=== PATIENT | male | born 1985 | race Hispanic/Latino ===

== ENCOUNTER 2018-10-27 14:12 | Emergency (ER) | payer SELFPAY ==
[2018-10-27 15:02] LABS: Urine Blood NEGATIVE (NEG); Urine Glucose NEGATIVE (NEG); Urine Protein NEGATIVE (NEG); Urine Specific Gravity 1.025 (1.005-1.030); Urine pH 5.5 (5.0-7.0)
[2018-10-27 15:12] LABS: Urine Bacteria <20 /HPF (NONE SEEN); Urine Culture Reflex Order NOT NEEDED; Urine RBC <5 /HPF (NONE SEEN)
[2018-10-27 15:13] LABS: Urine Mucus 1+ /HPF (NONE SEEN)
--- NOTE | 2018-10-27 15:37 | RAD REPORT ---
EXAM DESCRIPTION: CT - Stone Protocol - 10/27/2018 3:20 pm CLINICAL HISTORY: Abdominal pain. Left abdominal pain COMPARISON: 2014 TECHNIQUE: Computed axial tomography of the abdomen pelvis was obtained without oral or IV contrast. Lack of IV and oral contrast limits evaluation of solid organs, bowel, and vessels. Coronal reformat javi images were obtained and reviewed. All CT scans are performed using dose optimization technique as appropriate and may include automated exposure control or mA/KV adjustment according to patient size. FINDINGS: A renal calculus is not seen. An ureteral calculus is not noted. A bladder calculus is not present. The liver, spleen, pancreas and adrenals appear grossly normal There is no evidence of diverticulitis. The appendix appears normal Spondylolysis L5 IMPRESSION: Negative for a genitourinary calculus
--- NOTE | 2018-10-27 15:42 | EDPHYS ---
Physician Documentation [facility] Name: Matias Hernandez Age: 33 yrs Sex: Male : 1985 Arrival Date: 10/27/2018 Time: 14:14 Bed 17 Private MD: ED Physician Abel Langford HPI: 10/27 15:19 This 33 yrs old Male presents to ER via Ambulatory with complaints of Back kb Pain. 15:19 The patient presents with pain that is acute, with no known mechanism of injury, and kb tenderness. The symptoms are located in the left mid back. Onset: The symptoms/episode began/occurred yesterday. The pain radiates to the left upper quadrant. Associated signs and symptoms: Pertinent positives: abdominal pain, Pertinent negatives: chest pain, constipation, dysuria, fever, headache, hematuria, incontinence, nausea, numbness, tingling, urinary retention, vomiting, weakness. The problem was sustained from unknown cause. Modifying factors: The patient symptoms are alleviated by nothing, the patient symptoms are aggravated by palpation. Severity of symptoms: At their worst the symptoms were mild, moderate, in the emergency department the symptoms are unchanged. The patient has not experienced similar symptoms in the past. The patient has not recently seen a physician. Pt reports left flank/mid back pain that started yesterday. Reports it is now wrapping around to LUQ. Denies fever, n/v/d, urinary symptoms. Historical: - Allergies: 14:18 PENICILLINS; tw2 14:18 "all CILLINS"; tw2 - Home Meds: 14:18 losartan 50 mg oral tab 1 tab once daily [Active]; tw2 - PMHx: 14:18 Obesity; Hypertension; tw2 - PSHx: 14:18 None; tw2 - Immunization history:: Adult Immunizations. - Social history:: Smoking status: . - Ebola Screening: : Patient denies travel to an Ebola-affected area in the 21 days before illness onset. ROS: 15:19 Constitutional: Negative for fever, chills, and weight loss, Cardiovascular: Negative kb for chest pain, palpitations, and edema, Respiratory: Negative for shortness of breath, cough, wheezing, and pleuritic chest pain, Abdomen/GI: Negative for abdominal pain, nausea, vomiting, diarrhea, and constipation, : Negative for injury, bleeding, discharge, and swelling, MS/Extremity: Negative for injury and deformity, Skin: Negative for injury, rash, and discoloration, Neuro: Negative for headache, weakness, numbness, tingling, and seizure. 15:19 Back: Positive for flank pain, on the left, radiated pain. Exam: 15:19 Constitutional: This is a well developed, well nourished patient who is awake, alert, kb and in no acute distress. Head/Face: Normocephalic, atraumatic. Chest/axilla: Normal chest wall appearance and motion. Nontender with no deformity. No lesions are appreciated. Cardiovascular: Regular rate and rhythm with a normal S1 and S2. No gallops, murmurs, or rubs. Normal PMI, no JVD. No pulse deficits. Respiratory: Lungs have equal breath sounds bilaterally, clear to auscultation and percussion. No rales, rhonchi or wheezes noted. No increased work of breathing, no retractions or nasal flaring. Abdomen/GI: Soft, non-tender, with normal bowel sounds. No distension or tympany. No guarding or rebound. No evidence of tenderness throughout. Skin: Warm, dry with normal turgor. Normal color with no rashes, no lesions, and no evidence of cellulitis. MS/ Extremity: Pulses equal, no cyanosis. Neurovascular intact. Full, normal range of motion. Neuro: Awake and alert, GCS 15, oriented to person, place, time, and situation. Cranial nerves II-XII grossly intact. Motor strength 5/5 in all extremities. Sensory grossly intact. Cerebellar exam normal. Normal gait. 15:19 Back: pain, that is moderate, of the left mid back. Vital Signs: 14:16 BP 154 / 71; Pulse 81; Resp 17; Temp 97.7(O); Pulse Ox 97% ; Weight 174.63 kg (R); tw2 Height 6 ft. 1 in. (185.42 cm); Pain 8/10; 14:16 Body Mass Index 50.79 (174.63 kg, 185.42 cm) tw2 MDM: 14:38 Patient medically screened. kb 15:18 Data reviewed: vital signs, nurses notes. Data interpreted: Pulse oximetry: on room air kb is 97 %. Interpretation: normal. 15:38 Counseling: I had a detailed discussion with the patient and/or guardian regarding: the kb historical points, exam findings, and any diagnostic results supporting the discharge/admit diagnosis, lab results, radiology results, the need for outpatient follow up, a family practitioner, to return to the emergency department if symptoms worsen or persist or if there are any questions or concerns that arise at home. 10/27 14:57 Order name: Urine Culture kb 10/27 14:57 Order name: Urine Microscopic Only; Complete Time: 15:14 kb 10/27 14:56 Order name: CT Stone Protocol; Complete Time: 15:38 kb 10/27 14:57 Order name: Urine Dipstick-Ancillary (obtain specimen); Complete Time: 14:57 kb 10/27 14:57 Order name: Urine Dipstick--Ancillary (enter results); Complete Time: 15:07 kb Administered Medications: 15:53 Drug: TORadol 60 mg Route: IM; Site: right gluteus; em Disposition: 10/28 07:02 Co-signature as Attending Physician, Abel Langford MD. rn Disposition: 10/27/18 15:42 Discharged to Home. Impression: Left midback pain. - Condition is Stable. - Discharge Instructions: Musculoskeletal Pain, Back Pain, Adult, Oabk-kg-[id number]. - Prescriptions for Diclofenac Sodium 75 mg Oral Tablet, Delayed Release (E.C.) - take 1 tablet by ORAL route 2 times per day As needed; 30 tablet. - Medication Reconciliation Form, Thank You Letter, Antibiotic Education, Prescription Opioid Use form. - Follow up: Emergency Department; When: As needed; Reason: Worsening of condition. Follow up: Private Physician; When: 2 - 3 days; Reason: Recheck today's complaints, Continuance of care, Re-evaluation by your physician. Signatures: Dispatcher [employer] Olga Guzmán, BETY-C MARKETING PROJECT COORDINATOR-Ckb Rip Gerber, AUTO BODY ESTIMATOR AUTO BODY ESTIMATOR Abel Langford MD MD rn Wise, Tara, RN RN tw2 Corrections: (The following items were deleted from the chart) 10/27 16:04 15:42 10/27/2018 15:42 Discharged to Home. Impression: Left midback pain. Condition is em Stable. Forms are Medication Reconciliation Form, Thank You Letter, Antibiotic Education, Prescription Opioid Use. Follow up: Emergency Department; When: As needed; Reason: Worsening of condition. Follow up: Private Physician; When: 2 - 3 days; Reason: Recheck today's complaints, Continuance of care, Re-evaluation by your physician. kb
--- NOTE | 2018-10-27 15:42 | ER ---
Nurse's Notes [facility] Name: Matias Hernandez Age: 33 yrs Sex: Male : 1985 Arrival Date: 10/27/2018 Time: 14:14 Bed 17 Private MD: Diagnosis: Left midback pain Presentation: 10/27 14:15 Presenting complaint: Patient states: it started hurting on my left kidney area and tw2 down to the middle of my back and on the LEFT of my stomach, started yesterday. Transition of care: patient was not received from another setting of care. Onset of symptoms was October 27, 2018. Risk Assessment: Do you want to hurt yourself or someone else? Patient reports no desire to harm self or others. Initial Sepsis Screen: Does the patient meet any 2 criteria? No. Patient's initial sepsis screen is negative. Does the patient have a suspected source of infection? No. Patient's initial sepsis screen is negative. Care prior to arrival: None. 14:15 Method Of Arrival: Ambulatory tw2 14:15 Acuity: THOMAS 3 tw2 Triage Assessment: 14:18 General: Appears in no apparent distress. obese, Behavior is calm, cooperative, tw2 appropriate for age. Pain: Complains of pain in left low back and left mid back. GI: Reports lower abdominal pain, upper abdominal pain. Musculoskeletal: Range of motion: intact in all extremities. Historical: - Allergies: 14:18 PENICILLINS; tw2 14:18 "all CILLINS"; tw2 - Home Meds: 14:18 losartan 50 mg oral tab 1 tab once daily [Active]; tw2 - PMHx: 14:18 Obesity; Hypertension; tw2 - PSHx: 14:18 None; tw2 - Immunization history:: Adult Immunizations. - Social history:: Smoking status: . - Ebola Screening: : Patient denies travel to an Ebola-affected area in the 21 days before illness onset. Screenin:48 Abuse screen: Denies threats or abuse. Nutritional screening: No deficits noted. tw2 Tuberculosis screening: No symptoms or risk factors identified. Fall Risk None identified. Assessment: 14:44 General: Appears in no apparent distress. comfortable, Behavior is calm, cooperative, em Denies fever. Pain: Complains of pain in left mid back Pain currently is 8 out of 10 on a pain scale. Neuro: Level of Consciousness is awake, alert, obeys commands, Oriented to person, place, time, situation, Denies paresthesias. Cardiovascular: Capillary refill < 3 seconds Patient's skin is warm and dry. Respiratory: Airway is patent Respiratory effort is even, unlabored, Respiratory pattern is regular, symmetrical. GI: Abdomen is round non-distended, Patient currently denies nausea, vomiting. : Denies burning with urination, discharge. Derm: Skin is intact, is healthy with good turgor, Skin is pink, warm \\T\\ dry. Musculoskeletal: Capillary refill < 3 seconds, Range of motion: intact in all extremities. Vital Signs: 14:16 BP 154 / 71; Pulse 81; Resp 17; Temp 97.7(O); Pulse Ox 97% ; Weight 174.63 kg (R); tw2 Height 6 ft. 1 in. (185.42 cm); Pain 8/10; 14:16 Body Mass Index 50.79 (174.63 kg, 185.42 cm) tw2 ED Course: 14:14 Patient arrived in ED. rg4 14:16 Triage completed. tw2 14:18 Arm band placed on. tw2 14:28 Bed in low position. Adult w/ patient. tw2 14:37 Olga Mar FNP-C is [facility]. kb 14:37 Abel Langford MD is Attending Physician. kb 15:08 Rip Gerber LVN is Primary Nurse. em 15:20 CT completed. Patient tolerated procedure well. Patient moved back from CT. mw3 15:22 CT Stone Protocol In Process Unspecified. EDMS 16:04 No provider procedures requiring assistance completed. Patient did not have IV access em during this emergency room visit. Administered Medications: 15:53 Drug: TORadol 60 mg Route: IM; Site: right gluteus; em Outcome: 15:42 Discharge ordered by MD. kb 16:04 Discharged to home ambulatory, with family. em 16:04 Condition: good 16:04 Discharge instructions given to patient, family, Instructed on discharge instructions, follow up and referral plans. medication usage, Demonstrated understanding of instructions, follow-up care, medications, Prescriptions given X 1. 16:04 Patient left the ED. em Signatures: Dispatcher [employer] EDMS Olga Mar FNP-C FNP-Ckb Munoz Rip, SCROLL SHEAR OPERATOR SCROLL SHEAR OPERATOR Aleida Yeung, RN RN tw2 Essie Turpin rg4 Jennifer Cobb mw3
[2018-10-27] MEDS ORDERED: KETOROLAC 30 MG/ML INJ ONE (15:59)
== END 2018-10-27 16:04 | disposition home or self-care (01) ==
LOC: ER 14:12
DX: M54.6 Pain in thoracic spine (principal); Z88.0 Allergy status to penicillin
CPT/HCPCS: 74176; 76377; 81003; 81015; 87086; 87088; 96372; 99284

== ENCOUNTER 2019-03-31 18:14 | Emergency (ER) | payer SELFPAY ==
[2019-03-31] MEDS ORDERED: ALBUTEROL 2.5 MG/3 ML NEB SOL ONE (19:09)
[2019-03-31] MEDS ORDERED: predniSONE 20 MG TAB ONE (19:09)
[2019-03-31] MEDS ORDERED: IPRATROPIUM BROM 0.5MG/2.5ML ONE (19:09)
--- NOTE | 2019-03-31 19:39 | RAD REPORT ---
EXAM DESCRIPTION: Pam Urena (2 Views)03/31/2019 7:22 pm CLINICAL HISTORY: Cough COMPARISON: 2017 FINDINGS: The lungs appear clear of acute infiltrate. The heart is normal size IMPRESSION: No acute abnormalities displayed
--- NOTE | 2019-03-31 21:11 | ER ---
Nurse's Notes [facility] Name: Matias Hernandez Age: 33 yrs Sex: Male : 1985 Arrival Date: 03/31/2019 Time: 18:17 Bed 13 Private MD: Diagnosis: Bronchitis, not specified as acute or chronic Presentation: 03/31 18:28 Presenting complaint: Patient states: SMITH, cough, SOB, since Monday. Transition of care: la1 patient was not received from another setting of care. Onset of symptoms was March 31, 2019. Risk Assessment: Do you want to hurt yourself or someone else? Patient reports no desire to harm self or others. Initial Sepsis Screen: Does the patient meet any 2 criteria? No. Patient's initial sepsis screen is negative. Does the patient have a suspected source of infection? No. Patient's initial sepsis screen is negative. Care prior to arrival: None. 18:28 Method Of Arrival: Ambulatory la1 18:28 Acuity: THOMAS 3 la1 Historical: - Allergies: 18:28 "all CILLINS"; la1 18:28 PENICILLINS; la1 - PMHx: 18:28 Hypertension; Obesity; la1 - Immunization history:: Adult Immunizations up to date. - Social history:: Smoking status: Patient/guardian denies using tobacco. - Ebola Screening: : No symptoms or risks identified at this time. Screenin:38 Abuse screen: Denies threats or abuse. Denies injuries from another. Nutritional ph screening: No deficits noted. Tuberculosis screening: No symptoms or risk factors identified. Fall Risk None identified. Assessment: 18:45 General: Appears in no apparent distress. comfortable, obese, Behavior is calm, ph cooperative, appropriate for age, Denies fever. Pain: Complains of pain in head. Neuro: Level of Consciousness is awake, alert, obeys commands, Oriented to person, place, time, situation. Neuro: Reports headache since Monday. Cardiovascular: Capillary refill < 3 seconds in bilateral fingers Patient's skin is warm and dry. Respiratory: Reports shortness of breath at rest cough that is Airway is patent Respiratory effort is even, unlabored, Respiratory pattern is regular, symmetrical. GI: No signs and/or symptoms were reported involving the gastrointestinal system. Derm: Skin is intact, Skin is pink, warm \\T\\ dry. Musculoskeletal: Circulation, motion, and sensation intact. Range of motion: intact in all extremities. 19:13 Reassessment: Patient appears in no apparent distress at this time. Patient and/or aa1 family updated on plan of care and expected duration. Pain level reassessed. Patient is alert, oriented x 3, equal unlabored respirations, skin warm/dry/pink. Pt taken to x-ray at this time. 21:01 Reassessment: Patient appears in no apparent distress at this time. Patient and/or aa1 family updated on plan of care and expected duration. Pain level reassessed. Patient is alert, oriented x 3, equal unlabored respirations, skin warm/dry/pink. Awaiting x-ray results Patient denies pain at this time. Patient states symptoms have improved. 21:21 Reassessment: Patient appears in no apparent distress at this time. Patient is alert, aa1 oriented x 3, equal unlabored respirations, skin warm/dry/pink. Discussed d/c \\T\\ f/u instructions with pt; denies questions or concerns at this time. Ambulatory to lobby with steady gait Patient states feeling better. Vital Signs: 18:28 BP 144 / 72; Pulse 79; Resp 16; Temp 98.1; Pulse Ox 100% on R/A; Weight 175.99 kg; la1 Height 6 ft. 0 in. (182.88 cm); 19:41 BP 118 / 71; Pulse 81; Resp 18; Pulse Ox 100% ; Pain 0/10; aa1 20:45 BP 122 / 73; Pulse 87; Resp 18; Pulse Ox 97% on R/A; Pain 0/10; aa1 18:28 Body Mass Index 52.62 (175.99 kg, 182.88 cm) la1 ED Course: 18:17 Patient arrived in ED. mr 18:28 Triage completed. la1 18:29 Arm band placed on right wrist. la1 18:34 Valdemar Bower NP is PHCP. pm1 18:34 Kenzie Molina MD is Attending Physician. pm1 18:37 Olga Waters RN is Primary Nurse. ph 19:15 Pulse ox on. NIBP on. aa1 19:22 Chest Pa And Lat (2 Views) XRAY In Process Unspecified. EDMS 21:21 Patient has correct armband on for positive identification. Bed in low position. Call aa1 light in reach. 21:22 No provider procedures requiring assistance completed. Patient did not have IV access aa1 during this emergency room visit. Administered Medications: 19:12 Drug: predniSONE 60 mg Route: PO; aa1 21:18 Follow up: Response: No adverse reaction; Marked relief of symptoms aa1 19:25 Drug: Albuterol - atroVENT (3:1) (2.5 mg - 0.5 mg) 3 ml Route: Nebulizer; aa1 21:18 Follow up: Response: No adverse reaction; Marked relief of symptoms aa1 Outcome: 21:10 Discharge ordered by MD. pm1 21:22 Discharged to home ambulatory. aa1 21:22 Condition: good 21:22 Discharge instructions given to patient, Instructed on discharge instructions, follow up and referral plans. medication usage, Demonstrated understanding of instructions, follow-up care, medications, Prescriptions given X 3. 21:23 Patient left the ED. aa1 Signatures: Dispatcher [employer] EDMS Corin Murray RN RN aa1 Shagufta Varghese Lee RN MAGUI la1 Olga Waters RN RN ph Marinas, Patrick, VAULT MECHANIC VAULT MECHANIC pm1 Corrections: (The following items were deleted from the chart) :23 21:22 Discharge instructions given to patient, Instructed on discharge instructions, aa1 follow up and referral plans. medication usage, Demonstrated understanding of instructions, follow-up care, medications, Prescriptions given X 1, aa1
--- NOTE | 2019-03-31 21:11 | EDPHYS ---
Physician Documentation [facility] Name: Matias Hernandez Age: 33 yrs Sex: Male : 1985 Arrival Date: 03/31/2019 Time: 18:17 Bed 13 Private MD: ED Physician Kenzie Molina HPI: 03/31 19:01 This 33 yrs old Male presents to ER via Ambulatory with complaints of pm1 Headache, Shortness Of Breath, Cough. 19:01 The patient or guardian reports cough, with productive sputum. Onset: The pm1 symptoms/episode began/occurred 2 day(s) ago. Severity of symptoms: in the emergency department the symptoms are actually worse. Modifying factors: The symptoms are alleviated by nothing, the symptoms are aggravated by nothing. Associated signs and symptoms: Pertinent positives: sore throat, post nasal drainage, headache, Pertinent negatives: ear ache, fever. The patient has not recently seen a physician. Historical: - Allergies: 18:28 "all CILLINS"; la1 18:28 PENICILLINS; la1 - PMHx: 18:28 Hypertension; Obesity; la1 - Immunization history:: Adult Immunizations up to date. - Social history:: Smoking status: Patient/guardian denies using tobacco. - Ebola Screening: : No symptoms or risks identified at this time. ROS: 19:01 Constitutional: Negative for fever, chills, and weight loss, Eyes: Negative for injury, pm1 pain, redness, and discharge. 19:01 Neck: Negative for injury, pain, and swelling, Cardiovascular: Negative for chest pain, palpitations, and edema. 19:01 Abdomen/GI: Negative for abdominal pain, nausea, vomiting, diarrhea, and constipation, Back: Negative for injury and pain, MS/Extremity: Negative for injury and deformity, Skin: Negative for injury, rash, and discoloration, Neuro: Negative for headache, weakness, numbness, tingling, and seizure. 19:01 ENT: Positive for sore throat, Negative for drainage from ear(s), ear pain. 19:01 Respiratory: Positive for cough, shortness of breath, Negative for wheezing. Exam: 19:01 Constitutional: This is a well developed, well nourished patient who is awake, alert, pm1 and in no acute distress. Head/Face: Normocephalic, atraumatic. Eyes: Pupils equal round and reactive to light, extra-ocular motions intact. Lids and lashes normal. Conjunctiva and sclera are non-icteric and not injected. Cornea within normal limits. Periorbital areas with no swelling, redness, or edema. ENT: Nares patent. No nasal discharge, no septal abnormalities noted. Tympanic membranes are normal and external auditory canals are clear. Oropharynx with no redness, swelling, or masses, exudates, or evidence of obstruction, uvula midline. Mucous membranes moist. Neck: Trachea midline, no thyromegaly or masses palpated, and no cervical lymphadenopathy. Supple, full range of motion without nuchal rigidity, or vertebral point tenderness. No Meningismus. Chest/axilla: Normal chest wall appearance and motion. Nontender with no deformity. No lesions are appreciated. Cardiovascular: Regular rate and rhythm with a normal S1 and S2. No gallops, murmurs, or rubs. Normal PMI, no JVD. No pulse deficits. Respiratory: Lungs have equal breath sounds bilaterally, clear to auscultation and percussion. No rales, rhonchi or wheezes noted. No increased work of breathing, no retractions or nasal flaring. Abdomen/GI: Soft, non-tender, with normal bowel sounds. No distension or tympany. No guarding or rebound. No evidence of tenderness throughout. Back: No spinal tenderness. No costovertebral tenderness. Full range of motion. Skin: Warm, dry with normal turgor. Normal color with no rashes, no lesions, and no evidence of cellulitis. MS/ Extremity: Pulses equal, no cyanosis. Neurovascular intact. Full, normal range of motion. 19:01 Neuro: Orientation: is normal, Motor: is normal, moves all fours. Vital Signs: 18:28 BP 144 / 72; Pulse 79; Resp 16; Temp 98.1; Pulse Ox 100% on R/A; Weight 175.99 kg; la1 Height 6 ft. 0 in. (182.88 cm); 19:41 BP 118 / 71; Pulse 81; Resp 18; Pulse Ox 100% ; Pain 0/10; aa1 20:45 BP 122 / 73; Pulse 87; Resp 18; Pulse Ox 97% on R/A; Pain 0/10; aa1 18:28 Body Mass Index 52.62 (175.99 kg, 182.88 cm) la1 MDM: 18:35 Patient medically screened. pm1 21:09 Data reviewed: vital signs. Data interpreted: Pulse oximetry: on room air is 97 %. pm1 Interpretation: normal. Counseling: I had a detailed discussion with the patient and/or guardian regarding: the historical points, exam findings, and any diagnostic results supporting the discharge/admit diagnosis, lab results, radiology results, the need for outpatient follow up, a family practitioner, to return to the emergency department if symptoms worsen or persist or if there are any questions or concerns that arise at home. 03/31 19:01 Order name: Flu; Complete Time: 19:31 pm1 03/31 19:01 Order name: Strep; Complete Time: 19:31 pm1 03/31 19: Order name: Chest Pa And Lat (2 Views) XRAY pm1 03/31 19:33 Order name: Throat Culture EDMS Administered Medications: 19:12 Drug: predniSONE 60 mg Route: PO; aa1 21:18 Follow up: Response: No adverse reaction; Marked relief of symptoms aa1 19:25 Drug: Albuterol - atroVENT (3:1) (2.5 mg - 0.5 mg) 3 ml Route: Nebulizer; aa1 21:18 Follow up: Response: No adverse reaction; Marked relief of symptoms aa1 Disposition: 04/01 16:48 Co-signature as Attending Physician, Kenzie Molina MD. ma2 Disposition: 03/31/19 21:10 Discharged to Home. Impression: Bronchitis, not specified as acute or chronic. - Condition is Stable. - Discharge Instructions: Acute Bronchitis, Adult, How to Use an Inhaler, Cough, Adult. - Prescriptions for Medrol (Kaiden) 4 mg Oral Tablets, Dose Pack - take 1 tablet by ORAL route as directed - follow package instructions; 1 packet. Albuterol Sulfate 90 mcg/actuation - inhale 1-2 puff by INHALATION route every 4-6 hours; 1 Inhaler. Guaifenesin AC 10- 100 mg/5 mL Oral Liquid - take 10 milliliter by ORAL route every 4 hours As needed; 240 milliliter. - Medication Reconciliation Form, Thank You Letter, Antibiotic Education, Prescription Opioid Use form. - Follow up: Emergency Department; When: As needed; Reason: Worsening of condition. Follow up: Private Physician; When: 2 - 3 days; Reason: Recheck today's complaints, Continuance of care, Re-evaluation by your physician. - Problem is new. - Symptoms have improved. Signatures: Dispatcher [employer] EDCorin Sommers RN RN aa1 Jose R Urias RN RN la1 Valdemar Bower, SLASHER TENDER SLASHER TENDER pm1 Kenzie Molina MD MD ma2 Corrections: (The following items were deleted from the chart) 03/31 21:23 21:10 03/31/2019 21:10 Discharged to Home. Impression: Bronchitis, not specified as aa1 acute or chronic. Condition is Stable. Forms are Medication Reconciliation Form, Thank You Letter, Antibiotic Education, Prescription Opioid Use. Follow up: Emergency Department; When: As needed; Reason: Worsening of condition. Follow up: Private Physician; When: 2 - 3 days; Reason: Recheck today's complaints, Continuance of care, Re-evaluation by your physician. Problem is new. Symptoms have improved. pm1
[2019-03-31 21:49] VITALS: TEMP 98.1
[2019-03-31 21:52] VITALS: BP 122/73; O2SAT 97
== END 2019-03-31 21:23 | disposition home or self-care (01) ==
LOC: ER 18:14
DX: J40 Bronchitis, not specified as acute or chronic (principal); I10 Essential (primary) hypertension; E66.9 Obesity, unspecified; Z88.0 Allergy status to penicillin
CPT/HCPCS: 71046; 87070; 87081; 87804; 94640; 99284; J7512

== ENCOUNTER 2021-03-07 23:50 | Emergency (ER) | payer SELFPAY ==
[2021-03-08 01:01] LABS: Absolute Lymphocytes (CBC) 1.5 K/uL (0.7-4.9); Basophils % 0.3 % (0-1.3); Hematocrit 41.5 % (39.6-49.0); Lymphocytes % 14.6 % (15.3-44.8); MPV 8.4 fL (7.6-11.3); RBC Red Blood Cell Count 4.78 M/uL (4.33-5.43)
[2021-03-08 01:02] LABS: Protime INR 1.03
[2021-03-08 01:14] LABS: ALT/SGPT 39 U/L (12-78); AST/SGOT 26 U/L (15-37); Albumin 3.5 g/dL (3.4-5.0); Alkaline Phosphatase 110 U/L (45-117); BUN Blood Urea Nitrogen 14 mg/dL (7-18); Bicarbonate 25 mmol/L (21-32); Bilirubin Direct 0.2 mg/dL (0-0.2); Bilirubin Total 0.4 mg/dL (0.2-1.0); Ferritin 66.9 ng/mL (26-388); Glucose Level 152 mg/dL (74-106); Lipase 99 U/L (73-393); Potassium 3.8 mmol/L (3.5-5.1); Protein, Total 7.7 g/dL (6.4-8.2); Sodium Level 143 mmol/L (136-145); Troponin (Emerg Dept Use Only) < 0.02 ng/mL (0.0-0.045)
[2021-03-08] MEDS ORDERED: METHYLPREDNISOLONE 125 MG INJ ONE (01:14)
[2021-03-08] MEDS ORDERED: IPRATROPIUM BROM 0.5MG/2.5ML ONE (01:14)
--- NOTE | 2021-03-08 02:17 | ER ---
Nurse's Notes [facility] Name: Matias Hernandez Age: 35 yrs Sex: Male : 1985 Arrival Date: 03/07/2021 Time: 23:54 Bed 2 Private MD: Diagnosis: Cough;Shortness of breath Presentation: 03/07 23:54 Chief complaint: Patient states: SOB, productive cough, pt states he took 2 over the bs2 counter covid test from [facility] and one of them was possibly positive. Coronavirus screen: Vaccine status: Patient reports being unvaccinated. cough unrelated to allergies, difficulty breathing, shortness of breath. Ebola Screen: No symptoms or risks identified at this time. Initial Sepsis Screen: Does the patient meet any 2 criteria? No. Patient's initial sepsis screen is negative. Does the patient have a suspected source of infection? No. Patient's initial sepsis screen is negative. Risk Assessment: Do you want to hurt yourself or someone else? Patient reports no desire to harm self or others. Onset of symptoms was March 07, 2021. 23:54 Method Of Arrival: EMS: [facility] bs2 23:54 Acuity: THOMAS 3 bs2 Triage Assessment: 23:58 General: Appears in no apparent distress. uncomfortable, obese, Behavior is bs2 cooperative, appropriate for age, anxious. Pain: Complains of pain in generalized body aches Pain currently is 3 out of 10 on a pain scale. Pain began suddenly. EENT: No deficits noted. Neuro: No deficits noted. Cardiovascular: No deficits noted. Respiratory: Reports shortness of breath on exertion cough that is productive, pain with cough. GI: No signs and/or symptoms were reported involving the gastrointestinal system. : No signs and/or symptoms were reported regarding the genitourinary system. Derm: No signs and/or symptoms reported regarding the dermatologic system. Musculoskeletal: No signs and/or symptoms reported regarding the musculoskeletal system. Historical: - Allergies: 23:58 PENICILLINS; bs2 - Home Meds: 23:58 None [Active]; bs2 - PMHx: 23:58 Hypertension; Obesity; bs2 - PSHx: 23:58 None; bs2 - Immunization history:: Adult Immunizations not up to date, Client reports having NOT received the Covid vaccine. Flu vaccine is not up to date. - Social history:: Smoking status: Patient reports the use of cigarette tobacco products, smokes one-half pack cigarettes per day, Patient uses alcohol, occasionally. Screenin/18 00:00 Abuse screen: Denies threats or abuse. Denies injuries from another. Nutritional bs2 screening: No deficits noted. Tuberculosis screening: No symptoms or risk factors identified. Fall Risk None identified. Assessment: 00:00 General: Appears in no apparent distress. uncomfortable, obese, Behavior is bs2 cooperative, appropriate for age, anxious. Pain: Complains of pain in generalized aches and pain. Neuro: No deficits noted. Cardiovascular: No deficits noted. Respiratory: Reports shortness of breath on exertion cough that is productive, labored breathing Airway is patent Trachea midline Respiratory pattern is symmetrical, tachypnea Breath sounds are diminished in left lower lobe, right lower lobe, left posterior lower lobe and right posterior lower lobe Breath sounds with wheezes bilaterally. Onset: The symptoms/episode began/occurred this morning, the patient has mild shortness of breath. GI: No signs and/or symptoms were reported involving the gastrointestinal system. : No signs and/or symptoms were reported regarding the genitourinary system. EENT: No signs and/or symptoms were reported regarding the EENT system. Derm: No signs and/or symptoms reported regarding the dermatologic system. Musculoskeletal: No signs and/or symptoms reported regarding the musculoskeletal system. Vital Signs: 03/07 23:54 BP 177 / 93 LA Sitting (auto/lg); Pulse 95 MON; Resp 26 S; Temp 98.6(O); Pulse Ox 95% bs2 on R/A; Weight 199.58 kg; Height 6 ft. 0 in. (182.88 cm); Pain 07/29; 03/08 00:15 BP 137 / 83; Pulse 84; Resp 24; Pulse Ox 100% on Nebulizer Mask; bs2 02:32 BP 122 / 69; Pulse 80; Resp 20; Pulse Ox 99% on R/A; lh3 03/07 23:54 Body Mass Index 59.67 (199.58 kg, 182.88 cm) bs2 ED Course: 03/07 23:54 Patient arrived in ED. bs2 23:54 Haylie Goode, RN is Primary Nurse. bs2 23:58 Triage completed. bs2 23:58 Arm band placed on left wrist. bs2 03/08 00:00 Valdemar Bower NP is PHCP. pm1 00:00 Ludwin Hicks MD is Attending Physician. pm1 00:00 Patient has correct armband on for positive identification. Bed in low position. Call bs2 light in reach. Side rails up X 1. Pulse ox on. NIBP on. Warm blanket given. 00:21 CXR XRAY In Process Unspecified. EDMS 00:45 Initial lab(s) drawn, by me, sent to lab. First set of blood cultures drawn by me, EKG bs2 done, by ED staff, COVID swab sent to lab. Flu and/or RSV swab sent to lab. Strep swab sent to lab. 00:51 Troponin (emerg Dept Use Only) Sent. bs2 00:51 Strep Sent. bs2 00:51 Ptt, Activated Sent. bs2 00:51 Procalcitonin Sent. bs2 00:51 PT-INR Sent. bs2 00:51 Lipase Sent. bs2 00:51 Lactate Sent. bs2 00:51 LFT's Sent. bs2 00:51 Flu Sent. bs2 00:52 Ferritin Sent. bs2 00:52 CBC with Diff Sent. bs2 00:52 C-Reactive Protein Sent. bs2 00:52 BMP Sent. bs2 00:52 SARS-COV-2 RT PCR Sent. bs2 00:59 Inserted saline lock: 20 gauge in left antecubital area, using aseptic technique. Blood bs2 collected. 01:00 Second set of blood cultures drawn by me. bs2 02:32 No provider procedures requiring assistance completed. IV discontinued, intact, lh3 bleeding controlled, No redness/swelling at site. Pressure dressing applied. Administered Medications: 00:58 Drug: SOLU-Medrol (methylPrednisoLONE) 125 mg Route: IVP; Site: left antecubital; bs2 00:58 Drug: Albuterol - atroVENT (ipratropium) (3:1) (2.5 mg - 0.5 mg) 3 ml Route: Nebulizer; bs2 02:20 Drug: Rocephin (cefTRIAXone) 1 grams Route: IV; Rate: calculated rate; Site: left lh3 antecubital; 02:26 Drug: Tussionex Pennkinetic ER (chlorpheniramine-hydrocodone) Suspension 5 ml Route: PO;lh3 Outcome: 02:16 Discharge ordered by . pm1 02:32 Discharged to home ambulatory. lh3 02:32 Condition: good 02:32 Discharge instructions given to patient, Instructed on discharge instructions, medication usage, Demonstrated understanding of instructions, medications, Prescriptions given X 4. 02:33 Patient left the ED. 3 Signatures: Dispatcher [employer] EDMS Valdemar Bower NP MONKEY BREEDER pm1 Haylie Goode RN RN bs2 Mely Dawson RN RN 3 Corrections: (The following items were deleted from the chart) 03/07 23:58 23:58 Home Meds: losartan 50 mg Oral tab 1 tab once daily; bs2 bs2 03/08 00:48 00:46 CORONAVIRUS+ drawn and sent. [facility] EDMT
--- NOTE | 2021-03-08 02:18 | EDPHYS ---
Physician Documentation [facility] Name: Matias Hernandez Age: 35 yrs Sex: Male : 1985 Arrival Date: 03/07/2021 Time: 23:54 Bed 2 Private MD: ED Physician Ludwin Hicks HPI: 03/08 00:13 This 35 yrs old Male presents to ER via EMS with complaints of shortness of pm1 breath. 00:13 The patient has shortness of breath at rest. Onset: The symptoms/episode began/occurred pm1 2 day(s) ago. Duration: The symptoms are continuous. The patient's shortness of breath is aggravated by nothing, is alleviated by nothing. Associated signs and symptoms: Pertinent positives: productive cough, Pertinent negatives: chest pain, fever, nausea, vomiting, Abdominal pain. Severity of symptoms: in the emergency department the symptoms are worse. The patient has not experienced similar symptoms in the past. The patient has not recently seen a physician. Patient took 2 Covid home tests. Patient uncertain if 1 is positive or not. 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 Historical: - Allergies: 03/07 23:58 PENICILLINS; bs2 - Home Meds: 23:58 None [Active]; bs2 - PMHx: 23:58 Hypertension; Obesity; bs2 - PSHx: 23:58 None; bs2 - Immunization history:: Adult Immunizations not up to date, Client reports having NOT received the Covid vaccine. Flu vaccine is not up to date. - Social history:: Smoking status: Patient reports the use of cigarette tobacco products, smokes one-half pack cigarettes per day, Patient uses alcohol, occasionally. ROS: 03/08 00:13 Constitutional: Negative for fever, chills, and weight loss, Cardiovascular: Negative pm1 for chest pain, palpitations, and edema. Abdomen/GI: Negative for abdominal pain, nausea, vomiting, diarrhea, and constipation, MS/Extremity: Negative for injury and deformity, Skin: Negative for injury, rash, and discoloration, Neuro: Negative for headache, weakness, numbness, tingling, and seizure. Respiratory: Positive for cough, "sounds productive", shortness of breath. All other systems are negative. Exam: 00:13 Constitutional: This is a well developed, well nourished patient who is awake, alert, pm1 and in no acute distress. Head/Face: Normocephalic, atraumatic. 00:13 Skin: Warm, dry with normal turgor. Normal color with no rashes, no lesions, and no evidence of cellulitis. MS/ Extremity: Pulses equal, no cyanosis. Neurovascular intact. Full, normal range of motion. 00:13 Eyes: Exam is negative for acute changes. 00:13 ENT: Exam is negative for acute changes, Mouth: no acute changes, Lips: normal, moist, Oral mucosa: normal, pink and intact, moist. 00:13 Cardiovascular: Exam negative for acute changes, Rate: normal, Rhythm: regular, Pulses: no pulse deficits are appreciated, Heart sounds: normal, normal S1and S2. 00:13 Respiratory: the patient does not display signs of respiratory distress, Respirations: tachypnea, that is mild, Breath sounds: wheezing: expiratory that is mild. 00:13 Abdomen/GI: Inspection: obese Palpation: abdomen is soft and non-tender, in all quadrants. 00:13 Neuro: Exam negative for acute changes, Orientation: is normal, Mentation: is normal, Motor: is normal, moves all fours. Vital Signs: 03/07 23:54 BP 177 / 93 LA Sitting (auto/lg); Pulse 95 MON; Resp 26 S; Temp 98.6(O); Pulse Ox 95% bs2 on R/A; Weight 199.58 kg; Height 6 ft. 0 in. (182.88 cm); Pain 3/10; 03/08 00:15 BP 137 / 83; Pulse 84; Resp 24; Pulse Ox 100% on Nebulizer Mask; bs2 02:32 BP 122 / 69; Pulse 80; Resp 20; Pulse Ox 99% on R/A; lh3 03/07 23:54 Body Mass Index 59.67 (199.58 kg, 182.88 cm) bs2 MDM: 00:00 Patient medically screened. pm1 02:15 Data reviewed: vital signs. Data interpreted: Pulse oximetry: on room air is 100 %. pm1 Interpretation: normal. Counseling: I had a detailed discussion with the patient and/or guardian regarding: the historical points, exam findings, and any diagnostic results supporting the discharge/admit diagnosis, lab results, radiology results, the need for outpatient follow up, to return to the emergency department if symptoms worsen or persist or if there are any questions or concerns that arise at home. :18 Differential diagnosis: asthma, Bronchitis pneumonia, Pulmonary Embolism reactive pm1 airway disease. 02:18 ED course: PMP[place] reviewed. pm1 03/08 00:09 Order name: BMP; Complete Time: 01:14 pm1 03/08 00:09 Order name: C-Reactive Protein; Complete Time: 01:14 pm1 03/08 00:09 Order name: CBC with Diff; Complete Time: 01:10 pm1 03/08 00:09 Order name: Ferritin; Complete Time: 01:14 pm1 03/08 00:09 Order name: Flu; Complete Time: 02:14 pm03/08 00:09 Order name: LFT's; Complete Time: 01:14 pm1 03/08 00:09 Order name: Lactate; Complete Time: 01:14 pm1 03/08 00:09 Order name: Lipase; Complete Time: 01:14 pm1 03/08 00:09 Order name: PT-INR; Complete Time: 01:10 pm1 03/08 00:09 Order name: Procalcitonin; Complete Time: 01:31 pm1 03/08 00:09 Order name: Ptt, Activated; Complete Time: 01:10 pm1 03/08 00:09 Order name: Strep; Complete Time: 02:14 pm1 03/08 00:09 Order name: Troponin (emerg Dept Use Only); Complete Time: 01:14 pm1 03/08 00:09 Order name: CXR XRAY pm03/08 00:09 Order name: EKG; Complete Time: 00:11 pm03/08 00:09 Order name: Cardiac monitoring; Complete Time: 00:52 pm1 03/08 00:09 Order name: Droplet/Contact Precautions; Complete Time: 00:52 pm1 03/08 00:09 Order name: EKG - Nurse/Tech; Complete Time: 00:52 pm1 03/08 00:09 Order name: IV Start; Complete Time: 00:52 pm1 03/08 00:09 Order name: Labs collected and sent; Complete Time: 00:52 pm1 03/08 00:09 Order name: O2 Per Protocol; Complete Time: 00:52 pm1 03/08 00:09 Order name: O2 Sat Monitoring; Complete Time: 00:52 pm1 03/08 00:49 Order name: SARS-COV-2 RT PCR; Complete Time: 01:56 EDMS 03/08 02:15 Order name: Throat Culture EDMS Administered Medications: 00:58 Drug: SOLU-Medrol (methylPrednisoLONE) 125 mg Route: IVP; Site: left antecubital; bs2 00:58 Drug: Albuterol - atroVENT (ipratropium) (3:1) (2.5 mg - 0.5 mg) 3 ml Route: Nebulizer; bs2 02:20 Drug: Rocephin (cefTRIAXone) 1 grams Route: IV; Rate: calculated rate; Site: left lh3 antecubital; 02:26 Drug: Tussionex Pennkinetic ER (chlorpheniramine-hydrocodone) Suspension 5 ml Route: PO;lh3 Disposition: 05:06 Co-signature as Attending Physician, Ludwin Hicks MD. pkl Disposition Summary: 03/08/21 02:16 Discharge Ordered Location: Home pm1 Problem: new pm1 Symptoms: have improved pm1 Condition: Stable pm1 Diagnosis - Cough pm1 - Shortness of breath pm1 Followup: pm1 - With: Emergency Department - When: As needed - Reason: Worsening of condition Followup: pm1 - With: Private Physician - When: 2 - 3 days - Reason: Recheck today's complaints, Continuance of care, Re-evaluation by your physician Discharge Instructions: - Discharge Summary Sheet pm1 - Shortness of Breath, Adult pm1 - Cough, Adult pm1 Forms: - Medication Reconciliation Form pm1 - Thank You Letter pm1 - Antibiotic Education pm1 - Prescription Opioid Use pm1 Prescriptions: - Ventolin HFA 90 mcg/actuation Inhalation HFA aerosol inhaler - inhale 2 puff by INHALATION route every 4-6 hours As needed; 1 Inhaler; pm1 Refills: 0, Product Selection Permitted - Zithromax Z-Kaiden 250 mg Oral Tablet - take 1 tablet by ORAL route as directed for 5 days Day 1 - take two (2) tablets pm1 one time. Day 2, 3, 4 , 5 take one (1) tablet once daily.; 6 tablet; Refills: 0, Product Selection Permitted - Medrol (Kaiden) 4 mg Oral Tablets, Dose Pack - take 1 tablet by ORAL route as directed - follow package instructions; 1 pm1 packet; Refills: 0, Product Selection Permitted - Guaifenesin AC 10-100 mg/5 mL Oral Liquid - take 10 milliliters by ORAL route every 4 hours As needed; 240 milliliter; pm1 Refills: 0, Product Selection Permitted Signatures: Dispatcher [employer] EDMS Ludwin Hicks MD MD pkl Valdemar Bower, AFTER SCHOOL COORDINATOR AFTER SCHOOL COORDINATOR pm1 Haylie Goode RN RN bs2 Mely Dawson RN RN lh3 Corrections: (The following items were deleted from the chart) 03/07 23:58 23:58 Home Meds: losartan 50 mg Oral tab 1 tab once daily; bs2 bs2 03/08 00:48 00:11 CORONAVIRUS+ ordered. EDWA EDMS
[2021-03-08] MEDS ORDERED: CEFTRIAXONE 1000 MG/VIAL ONE (02:44)
[2021-03-08] MEDS ORDERED: HYDROCODONE/CHLORPHEN 5 ML/OSYR ONE (02:50)
[2021-03-08 02:55] VITALS: TEMP 98.6
[2021-03-08 02:58] VITALS: BP 122/69; O2SAT 99
--- NOTE | 2021-03-08 07:41 | RAD REPORT ---
EXAM DESCRIPTION: RAD - Chest Single View - 03/08/2021 12:20 am CLINICAL HISTORY: Cough;SOB COMPARISON: Chest Pa And Lat (2 Views) dated 03/31/2019; Chest Single View dated 04/02/2017; Chest S jil View dated 01/27/2016; CHEST SINGLE VIEW dated 01/14/2015 FINDINGS: Lines: None. Lungs: Diffuse increased prominence of the pulmonary interstitium. Pleural: No significant pleural effusions or pneumothorax. Cardiac: Increased heart size. Bones: No acute fractures. Other: IMPRESSION: Vascular congestion versus developing multifocal pneumonia.
--- NOTE | 2021-03-08 08:58 | EKG ---
Test Date: 2021-03-07 Test Time: 23:46:22 Coal Sample Tester: CARLENE MEASUREMENT RESULTS: Intervals: Rate: 85 DE: 176 QRSD: 110 QT: 388 QTc: 461 [place]: P: 22 DE: 176 QRS: 74 T: 57 INTERPRETIVE STATEMENTS: Normal sinus rhythm Normal ECG Compared to ECG 04/02/2017 22:21:37 No significant changes Electronically Signed On 03-08-21 08:57:15 CDT by Armaan Lauren
== END 2021-03-08 02:33 | disposition home or self-care (01) ==
LOC: ER 23:50
DX: R05.9 Cough, unspecified (principal); I10 Essential (primary) hypertension; F17.210 Nicotine dependence, cigarettes, uncomplicated; Z20.822 Contact with and (suspected) exposure to COVID-19; Z88.0 Allergy status to penicillin
CPT/HCPCS: 36415; 71045; 80048; 80076; 82728; 83605; 83690; 84145; 84484; 85025; 85610; 85730; 86140; 87070; 87081; 87804; 93005; 96374; 96375; 99285; J2930; U0003

== ENCOUNTER 2021-07-25 21:09 | Emergency (ER) | payer SELFPAY ==
[2021-07-25] MEDS ORDERED: HYDROCODONE/APAP 10/325 TAB ONE (22:36)
--- NOTE | 2021-07-25 23:22 | ER ---
Nurse's Notes [facility] Name: Matias Hernandez Age: 35 yrs Sex: Male : 1985 Arrival Date: 07/25/2021 Time: 21:13 Bed 9 Private MD: Diagnosis: Pain in left shoulder Presentation: 07/25 21:21 Chief complaint: Patient states: My left shoulder started hurting yesterday. when I vc1 woke up this morning it was worse. Now I can barely move or lift it. I don't remember doing anything to it. Coronavirus screen: Vaccine status: Patient reports being unvaccinated. At this time, the client does not indicate any symptoms associated with coronavirus-19. Ebola Screen: No symptoms or risks identified at this time. Initial Sepsis Screen: Does the patient meet any 2 criteria? No. Patient's initial sepsis screen is negative. Does the patient have a suspected source of infection? No. Patient's initial sepsis screen is negative. Risk Assessment: Do you want to hurt yourself or someone else? Patient reports no desire to harm self or others. Onset of symptoms was July 24, 2021. 21:21 Method Of Arrival: Ambulatory vc1 21:21 Acuity: THOMAS 4 vc1 Triage Assessment: 21:23 General: Appears in no apparent distress. uncomfortable, obese, Behavior is calm, vc1 cooperative, appropriate for age. Pain: Complains of pain in anterior aspect of left shoulder Pain radiates to left tricep and left elbow Pain currently is 9 out of 10 on a pain scale. Quality of pain is described as sharp. Cardiovascular: Denies chest pain, shortness of breath. Musculoskeletal: Range of motion: limited in left shoulder. Historical: - Allergies: 21:23 PENICILLINS; vc1 22:06 Iodine; lp1 - Home Meds: 21:23 None [Active]; vc1 - PMHx: 21:23 Obesity; vc1 - PSHx: 21:23 None; vc1 - Immunization history:: Adult Immunizations up to date. - Social history:: Smoking status: Patient denies any tobacco usage or history of. Screenin:02 Abuse screen: Denies threats or abuse. Denies injuries from another. Nutritional lp1 screening: No deficits noted. Tuberculosis screening: No symptoms or risk factors identified. Fall Risk None identified. Assessment: 22:06 General: Appears in no apparent distress. Behavior is appropriate for age. Pain: lp1 Complains of pain in left clavicle and anterior aspect of left shoulder Pain currently is 7 out of 10 on a pain scale. Quality of pain is described as sharp, Aggravated by increased activity. Neuro: No deficits noted. Cardiovascular: Patient's skin is warm and dry. Respiratory: Respiratory effort is even, unlabored. GI: No signs and/or symptoms were reported involving the gastrointestinal system. : No signs and/or symptoms were reported regarding the genitourinary system. EENT: No signs and/or symptoms were reported regarding the EENT system. Derm: Skin is pink, warm \T\ dry. Musculoskeletal: Circulation, motion, and sensation intact. Range of motion: limited in left shoulder Reports pain in left shoulder with abduction of left arm. 23:26 Reassessment: Patient and/or family updated on plan of care and expected duration. Pain vc1 level reassessed. Patient is alert, oriented x 3, equal unlabored respirations, skin warm/dry/pink. Patient states feeling better. Vital Signs: 21:21 BP 146 / 94; Pulse 88; Resp 16; Temp 99; Pulse Ox 96% on R/A; Weight 181.44 kg; Height vc1 6 ft. 0 in. (182.88 cm); Pain 9/10; 23:25 Pain 3/10; vc1 21:21 Body Mass Index 54.25 (181.44 kg, 182.88 cm) vc1 ED Course: 21:13 Patient arrived in ED. jj6 21:23 Triage completed. vc1 21:23 Arm band placed on right wrist. vc1 21:49 Valdemar Bower NP is PHCP. pm1 21:49 Jose Valerio MD is Attending Physician. pm1 21:56 Missy Servin, MAGUI is Primary Nurse. lp1 22:07 Patient has correct armband on for positive identification. lp1 22:34 Shoulder Left (2 View) XRAY In Process Unspecified. EDMS 23:26 No provider procedures requiring assistance completed. Sling applied to left arm. vc1 23:38 Patient did not have IV access during this emergency room visit. lp1 Administered Medications: 22:35 Drug: [place] (HYDROcodone-acetaminophen) 10 mg-325 mg 1 tabs Route: PO; vc1 23:25 Follow up: Pain 07/29 Adult; Response: No adverse reaction; Pain is decreased vc1 23:42 Follow up: Response: Pain is decreased lp1 Outcome: 23:21 Discharge ordered by . pm1 23:38 Discharged to home ambulatory, with significant other. lp1 23:38 Condition: good 23:38 Discharge instructions given to patient, Instructed on discharge instructions, follow up and referral plans. medication usage, Demonstrated understanding of instructions, follow-up care, medications, Prescriptions given X 2. 23:42 Patient left the ED. lp1 Signatures: Dispatcher [employer] EDMS Missy Servin RN RN lp1 Valdemar Bower, DELL GANG INVESTIGATOR pm1 Kera [email or web address] Sully Sy, RN RN vc1 Corrections: (The following items were deleted from the chart) 22:06 22:06 PMHx: Hypertension; lp1 lp1
--- NOTE | 2021-07-25 23:22 | EDPHYS ---
Physician Documentation [facility] Name: Matias Hernandez Age: 35 yrs Sex: Male : 1985 Arrival Date: 07/25/2021 Time: 21:13 Bed 9 Private MD: ED Physician Jose Valerio HPI: 07/25 22:10 This 35 yrs old Male presents to ER via Ambulatory with complaints of Shoulder pm1 Pain. 22:10 The patient or guardian complains of pain, that is acute. left shoulder. Context: The pm1 problem was sustained at home, resulted from an unknown reason, The patient experiences decreased range of motion, when attempts to raise arm, The patient reports no obvious deformity. Onset: The symptoms/episode began/occurred this morning. Modifying factors: the symptoms are alleviated by remaining still, The symptoms are aggravated by movement. Associated signs and symptoms: Pertinent negatives: chest pain, Numbness in left arm shortness of breath, tingling. Severity of symptoms: in the emergency department the symptoms are unchanged. Treatment prior to arrival includes: no previous treatment. The patient has not experienced similar symptoms in the past. The patient has not recently seen a physician. Historical: - Allergies: 21:23 PENICILLINS; vc1 22:06 Iodine; lp1 - Home Meds: 21:23 None [Active]; vc1 - PMHx: 21:23 Obesity; vc1 - PSHx: 21:23 None; vc1 - Immunization history:: Adult Immunizations up to date. - Social history:: Smoking status: Patient denies any tobacco usage or history of. ROS: 22:10 Constitutional: Negative for fever, chills, and weight loss. pm1 22:10 Cardiovascular: Negative for chest pain, palpitations, and edema, Respiratory: Negative for shortness of breath, cough, wheezing, and pleuritic chest pain. 22:10 Skin: Negative for injury, rash, and discoloration, Neuro: Negative for headache, weakness, numbness, tingling, and seizure. 22:10 MS/extremity: Positive for pain, tenderness, of the left shoulder, Negative for decreased range of motion, deformity. 22:10 All other systems are negative. Exam: 22:10 Constitutional: This is a well developed, well nourished patient who is awake, alert, pm1 and in no acute distress. Head/Face: Normocephalic, atraumatic. 22:10 Skin: Warm, dry with normal turgor. Normal color with no rashes, no lesions, and no evidence of cellulitis. 22:10 Cardiovascular: Exam negative for acute changes, Rate: normal, Rhythm: Pulses: no pulse deficits are appreciated, Heart sounds: normal. 22:10 Respiratory: Exam negative for acute changes, respiratory distress, shortness of breath, Breath sounds: are clear throughout. 22:10 Musculoskeletal/extremity: Extremities: grossly normal except: noted in the anterior aspect of left shoulder supraspinatus insertion point pain: patient with pain raising left arm. Unable to slowly lower left arm. 22:10 Neuro: Exam negative for acute changes, Orientation: is normal, Mentation: is normal, Motor: is normal, moves all fours, Sensation: is normal, no obvious gross deficits. Vital Signs: 21:21 BP 146 / 94; Pulse 88; Resp 16; Temp 99; Pulse Ox 96% on R/A; Weight 181.44 kg; Height vc1 6 ft. 0 in. (182.88 cm); Pain 9/10; 23:25 Pain 3/10; vc1 21:21 Body Mass Index 54.25 (181.44 kg, 182.88 cm) vc1 MDM: 22:10 Patient medically screened. pm1 23:20 Data reviewed: vital signs. Data interpreted: Pulse oximetry: on room air is 96 %. pm1 Interpretation: normal. Counseling: I had a detailed discussion with the patient and/or guardian regarding: the historical points, exam findings, and any diagnostic results supporting the discharge/admit diagnosis, radiology results, the need for outpatient follow up, to return to the emergency department if symptoms worsen or persist or if there are any questions or concerns that arise at home. 23:40 ED course: [place] reviewed. pm1 07/25 22:06 Order name: Shoulder Left (2 View) XRAY; Complete Time: 16:51 pm1 07/25 22:11 Order name: Sling; Complete Time: 23:25 pm1 Administered Medications: 22:35 Drug: [place] (HYDROcodone-acetaminophen) 10 mg-325 mg 1 tabs Route: PO; vc1 23:25 Follow up: Pain 3/10 Adult; Response: No adverse reaction; Pain is decreased vc1 23:42 Follow up: Response: Pain is decreased lp1 Disposition: 07/26 03:21 Co-signature as Attending Physician, Jose Valerio MD. 7 Disposition Summary: 07/25/21 23:21 Discharge Ordered Location: Home pm1 Problem: new pm1 Symptoms: have improved pm1 Condition: Stable pm1 Diagnosis - Pain in left shoulder pm1 Followup: pm1 - With: Emergency Department - When: As needed - Reason: Worsening of condition Followup: pm1 - With: Private Physician - When: 2 - 3 days - Reason: Recheck today's complaints, Continuance of care, Re-evaluation by your physician Discharge Instructions: - Discharge Summary Sheet pm1 - Joint Pain pm1 - Shoulder Pain pm1 - How to Use a Sling pm1 Forms: - Medication Reconciliation Form pm1 - Thank You Letter pm1 - Antibiotic Education pm1 - Prescription Opioid Use pm1 Prescriptions: - Diclofenac Sodium 75 mg Oral tablet,delayed release (DR/EC) - take 1 tablet by ORAL route 2 times per day As needed; 30 tablet; Refills: 0, pm1 Product Selection Permitted - Tramadol 50 mg Oral Tablet - take 1 tablet by ORAL route every 8 hours as needed; 12 tablet; Refills: 0, pm1 Product Selection Permitted Signatures: Dispatcher [employer] EDMissy Fletcher RN RN lp1 Valdemar Bower, INTERNAL CONTROLS CONSULTANT INTERNAL CONTROLS CONSULTANT pm1 Jose Valerio MD MD 7 Alsion Hammonds tw5 Sully Sy RN RN vc1 Corrections: (The following items were deleted from the chart) 07/25 22:06 22:06 PMHx: Hypertension; lp1 lp1
[2021-07-26 00:33] VITALS: BP 146/94; TEMP 99; O2SAT 96
--- NOTE | 2021-07-26 08:24 | RAD REPORT ---
EXAM DESCRIPTION: RAD - Shoulder Left 2 View - 07/25/2021 10:35 pm CLINICAL HISTORY: PAIN COMPARISON: No comparisons TECHNIQUE: Internal and external rotation views of the left shoulder were obtained. FINDINGS: There is no fracture or dislocation. AC joint degenerative change present with a small inf eriorly directed clavicle spur. There is degenerative change and spurring along the undersurface of t he acromion, lateral aspect. Acromial humeral joint space is still within range of normal. Punctate s oft tissue calcifications are present probably supraspinatus calcific tendinitis/tendinosis. No acute or destructive finding seen. Detail is limited by film technique and body habitus affects. IMPRESSION: Negative two-view left shoulder examination for acute findings.
== END 2021-07-25 23:42 | disposition home or self-care (01) ==
LOC: ER 21:09
DX: M25.512 Pain in left shoulder (principal); Z88.0 Allergy status to penicillin
CPT/HCPCS: 99284

== ENCOUNTER → 2023-05-31 | Emergency (ER) | payer SELFPAY ==
[~2023-05-31] MED LIST: CIPROFLOXACIN 400mg IV 400 MG/200 ML BAG IV ONE; METRONIDAZOLE 500mg IVPB 500 MG/100 ML BAG IV ONE; NA CHLORIDE 0.9% 1,000 ML ONE; ONDANSETRON 4 MG/2 ML VIAL ONE
[2023-05-31 10:14] LABS: Absolute Lymphocytes (CBC) 0.6 K/uL (0.7-4.9); Hematocrit 47.4 % (39.6-49.0); Lymphocytes % 4.9 % (15.3-44.8); MCV 88.1 fL (80-100); MPV 7.9 fL (7.6-11.3); Platelets 250 thou/uL (152-406); RBC Red Blood Cell Count 5.39 M/uL (4.33-5.43)
[2023-05-31 10:24] LABS: SARS-CoV-2 Antigen Rapid Res Negative (Negative)
[2023-05-31 10:32] LABS: Blood Morphology Comment NOT SEEN (NOT SEEN); Platelet Estimate ADEQ; White Blood Cell Scan OK (OK)
[2023-05-31 10:35] LABS: Albumin 3.5 g/dL (3.4-5.0); Bilirubin Total 0.4 mg/dL (0.2-1.0); Potassium 3.7 mEq/L (3.5-5.1); Protein, Total 7.8 g/dL (6.4-8.2); Troponin High Sensitivity 7.5 pg/mL (<58.9)
--- NOTE | 2023-05-31 11:04 | RAD REPORT ---
EXAM DESCRIPTION: US - Abdomen Exam Limited - 05/31/2023 10:20 am CLINICAL HISTORY: epigastric and RUQ abd pain;Abd pain COMPARISON: Stone Protocol dated 10/27/2018 TECHNIQUE: Sonographic grayscale and color flow images of the right upper abdominal quadrant were o btained. FINDINGS: The gallbladder demonstrates no gallstones. No pericholecystic fluid or gallbladder wall t hickening. The common bile duct is normal measuring 4 mm. The liver demonstrates no findings of intrahepatic biliary dilatation. Diffuse parenchymal hyper atte nuation suggesting steatosis. IMPRESSION: No gallbladder abnormalities. Hepatic parenchymal hyper attenuation suggesting steatosis.
--- NOTE | 2023-05-31 11:27 | ER ---
Nurse's Notes [facility] Name: Matias Hernandez Age: 37 yrs Sex: Male : 1985 Arrival Date: 05/31/2023 Time: 09:32 Bed 19 Private MD: Diagnosis: Gastroenteritis Presentation: 05/31 09:42 Chief complaint: Patient states: Abdominal pains with N/V/D since Monday. CP/SOB with ll1 nasal congestion. Takes Tylenol when he feels hot. Coronavirus screen: Vaccine status: Patient reports being unvaccinated. Client denies travel out of the [place] in the last 14 days. congestion, diarrhea, fatigue, fever, nausea, shortness of breath, vomiting. Client presents with at least one sign or symptom that may indicate coronavirus-19. Standard/surgical mask placed on the client. Ebola Screen: Patient denies travel to an Ebola-affected area in the 21 days before illness onset. Initial Sepsis Screen: Does the patient meet any 2 criteria? HR > 90 bpm. Does the patient have a suspected source of infection? Yes: Acute abdominal pain. Risk Assessment: Do you want to hurt yourself or someone else? Patient reports no desire to harm self or others. Onset of symptoms was May 29, 2023. 09:42 Method Of Arrival: Ambulatory 1 09:42 Acuity: THOMAS 3 ll1 Triage Assessment: 09:40 General: Appears uncomfortable, ill, Behavior is calm, cooperative, appropriate for ll1 age. Pain: Complains of pain in abdomen Pain currently is 9 out of 10 on a pain scale. Quality of pain is described as aching, crampy. EENT: Reports nasal congestion. Cardiovascular: Reports chest pain, fatigue, nausea, shortness of breath, vomiting. GI: Reports lower abdominal pain, upper abdominal pain, bloating, cramping, diarrhea, gaseousness, nausea, vomiting. Historical: - Allergies: 09:40 PENICILLINS; ll1 09:40 Iodine; ll1 09:40 SHELLFISH; ll1 - PMHx: 09:40 Obesity; ll1 - PSHx: 09:40 None; ll1 - Immunization history:: Adult Immunizations up to date. - Social history:: Smoking status: Patient denies any tobacco usage or history of. Screenin:00 [facility] ED Fall Risk Assessment (Adult) Score/Fall Risk Level 0 - 2 = Low Risk nj1 Oriented to surroundings, Maintained a safe environment, Hourly rounding (assess needs \T\ fall precautionary measures) done. Abuse screen: Denies threats or abuse. Denies injuries from another. Nutritional screening: No deficits noted. Tuberculosis screening: No symptoms or risk factors identified. Assessment: 09:55 General: Appears in no apparent distress. uncomfortable, Behavior is calm, cooperative, nj1 appropriate for age. 09:55 Pain: Complains of pain in abdomen Pain radiates to chest Pain currently is 9 out of 10 nj1 on a pain scale. Pain began 2-3 days ago. Neuro: Level of Consciousness is awake, alert, obeys commands, Oriented to person, place, time, situation. Cardiovascular: Patient's skin is warm and dry. Chest pain. Respiratory: Airway is patent Respiratory effort is even, unlabored. GI: Reports upper abdominal pain, diarrhea, nausea. 11:23 Reassessment: Patient appears in no apparent distress at this time. Patient and/or nj1 family updated on plan of care and expected duration. Pain level reassessed. Patient is alert, oriented x 3, equal unlabored respirations, skin warm/dry/pink. GI: Reports upper abdominal pain, Patient currently denies nausea. 14:06 Reassessment: No changes from previously documented assessment. Patient and/or family ll1 updated on plan of care and expected duration. Pain level reassessed. Patient is alert, oriented x 3, equal unlabored respirations, skin warm/dry/pink. Patient states feeling better. Vital Signs: 09:42 BP 156 / 89; Pulse 118; Resp 20; Temp 99.7; Pulse Ox 96% on R/A; Weight 190.51 kg; nj1 Height 6 ft. 0 in. ; Pain 9/10; 10:18 BP 132 / 87; Pulse 101; Resp 18; Pulse Ox 99% ; Pain 9/10; nj1 11:23 BP 143 / 93; Pulse 100; Resp 18; Pulse Ox 99% on R/A; Pain 8/10; nj1 14:06 BP 141 / 88; Pulse 95; Resp 19; Temp 99; Pulse Ox 99% on R/A; 1 09:42 Body Mass Index 56.96 (190.51 kg, 182.88 cm) nj1 09:42 Pain Scale: Adult nj1 10:18 Pain Scale: Adult nj1 11:23 Pain Scale: Adult nj1 ED Course: 09:35 Patient arrived in ED. mg5 09:36 Ammy Molina MD is Attending Physician. sp3 09:40 Arm band placed on Patient placed in an exam room, on a stretcher. ll1 09:42 Marii Mcallister, MAGUI is Primary Nurse. nj1 09:47 Triage completed. ll1 09:55 Inserted saline lock: 22 gauge in right antecubital area, using aseptic technique. nj1 Blood collected. 10:00 Patient has correct armband on for positive identification. Bed in low position. Call nj1 light in reach. Provided Education on: call light, fall precautions. 10:00 Client placed on continuous cardiac and pulse oximetry monitoring. NIBP monitoring nj1 applied. 10:00 No provider procedures requiring assistance completed. Patient maintains SpO2 nj1 saturation greater than 95% on room air. 10:22 Abdomen Limited US In Process Unspecified. EDMS 14:06 IV discontinued, intact, bleeding controlled, No redness/swelling at site. Pressure ll1 dressing applied. Administered Medications: 09:55 Drug: NS 0.9% IV 1000 ml IV at 1 bolus Per protocol; 1000 mL bolus Route: IV; Rate: 1 nj1 bolus; Site: right antecubital; 14:08 Follow up: Response: No adverse reaction; IV Status: Completed infusion; IV Intake: ll1 1000ml 09:55 Drug: Ondansetron IVP 4 mg IVP once; over 2 minutes Route: IVP; Site: right antecubital;nj1 11:23 Follow up: Response: Nausea is decreased nj1 12:37 Drug: Ciprofloxacin IVPB 400 mg 200 ml IVPB once over 60 mins Volume: 200 ml; Route: nj1 IVPB; Infused Over: 60 mins; Site: right antecubital; 14:07 Follow up: IV Status: Completed infusion; IV Intake: 200ml ll1 12:37 Drug: metroNIDAZOLE IVPB 500 mg 100 ml IVPB at 200 ml/hr once over 30 mins Volume: 100 nj1 ml; Route: IVPB; Rate: 200 ml/hr; Infused Over: 30 mins; Site: right antecubital; 13:10 Follow up: Response: No adverse reaction; IV Status: Completed infusion; IV Intake: nj1 100ml 14:07 Follow up: Response: No adverse reaction; IV Status: Completed infusion; IV Intake: ll1 100ml Medication: 12:51 VIS not applicable for this client. nj1 Intake: 13:10 IV: 100ml; Total: 100ml. nj1 14:07 IV: 100ml; Total: 200ml. ll1 14:07 IV: 200ml; Total: 400ml. ll1 14:08 IV: 1000ml; Total: 1400ml. ll1 Outcome: 11:27 Discharge ordered by . sp3 14:06 Discharged to home ambulatory, ll1 14:06 Condition: stable 14:06 Discharge instructions given to patient, Instructed on discharge instructions, follow up and referral plans. medication usage, Demonstrated understanding of instructions, follow-up care, medications, Prescriptions given X 2, 14:08 Patient left the ED. ll1 Signatures: Dispatcher [employer] EDMS Elise Barton RN RN ll1 Ammy Molina MD MD sp3 Marii Mcallister RN RN nj1 Anna Cesar mg5 Corrections: (The following items were deleted from the chart) 09:49 09:42 Chief complaint: Patient states: Abdominal pains with N/V/D since Monday. Gassy ll1 and feeling ll1 10:13 09:42 Pulse 118bpm; Resp 20bpm; Pulse Ox 96% RA; Temp 99.7F; 190.51 kg; Height 6 ft. 0 nj1 in.; BMI: 56.9; Pain 9/10, Adult; ll1
--- NOTE | 2023-05-31 11:27 | EDPHYS ---
Physician Documentation [facility] Name: Matias Hernandez Age: 37 yrs Sex: Male : 1985 Arrival Date: 05/31/2023 Time: 09:32 Bed 19 Private MD: ED Physician Ammy Molina HPI: 05/31 09:45 This 37 yrs old Male presents to ER via Unassigned with complaints of Chest sp3 Pain, Shortness Of Breath, Abdominal Pain, Fever. 09:45 37-year-old male with history of obesity now presents to the ED with chief complaint sp3 vomiting and diarrhea and mild diffuse abdominal pain. Symptoms started yesterday and patient also states he has had a subjective fever. Review of systems is positive for epigastric pain radiating superiorly into the chest. Patient denies history of cardiac disease, hypertension or prior chest pain episodes. Review of systems negative for headache, URI symptoms, neck pain, back pain, rash, bleeding, or any other signs or symptoms at this time. Diarrhea and emesis is clear without blood or mucus. No prior surgical history reported.. Historical: - Allergies: 09:40 PENICILLINS; ll1 09:40 Iodine; ll1 09:40 SHELLFISH; ll1 - PMHx: 09:40 Obesity; ll1 - PSHx: 09:40 None; ll1 - Immunization history:: Adult Immunizations up to date. - Social history:: Smoking status: Patient denies any tobacco usage or history of. ROS: 09:47 Eyes: Negative for injury, pain, redness, and discharge, ENT: Negative for injury, sp3 pain, and discharge, Neck: Negative for injury, pain, and swelling, Cardiovascular: Negative for chest pain, palpitations, and edema, Respiratory: Negative for shortness of breath, cough, wheezing, and pleuritic chest pain, Back: Negative for injury and pain, MS/Extremity: Negative for injury and deformity, Skin: Negative for injury, rash, and discoloration, Neuro: Negative for headache, weakness, numbness, tingling, and seizure, Psych: Negative for depression, anxiety, suicide ideation, homicidal ideation, and hallucinations, Allergy/Immunology: Negative for hives, rash, and allergies, Endocrine: Negative for neck swelling, polydipsia, polyuria, polyphagia, and marked weight changes, Hematologic/Lymphatic: Negative for swollen nodes, abnormal bleeding, and unusual bruising, 09:47 All other systems are negative, Exam: 09:47 Constitutional: This is a well developed, well nourished patient who is awake, alert, sp3 and in no acute distress. Head/Face: Normocephalic, atraumatic. Eyes: Pupils equal round and reactive to light, extra-ocular motions intact. Lids and lashes normal. Conjunctiva and sclera are non-icteric and not injected. Cornea within normal limits. Periorbital areas with no swelling, redness, or edema. ENT: Nares patent. No nasal discharge, no septal abnormalities noted. External auditory canals are clear. Oropharynx with no redness, swelling, or masses, exudates, or evidence of obstruction, uvula midline. Mucous membranes moist. Neck: Trachea midline, no thyromegaly or masses palpated, and no cervical lymphadenopathy. Supple, full range of motion without nuchal rigidity, or vertebral point tenderness. No Meningismus. Chest/axilla: Normal chest wall appearance and motion. Nontender with no deformity. No lesions are appreciated. Respiratory: Lungs have equal breath sounds bilaterally, clear to auscultation and percussion. No rales, rhonchi or wheezes noted. No increased work of breathing, no retractions or nasal flaring. Back: No spinal tenderness. No costovertebral tenderness. Full range of motion. Skin: Warm, dry with normal turgor. Normal color with no rashes, no lesions, and no evidence of cellulitis. MS/ Extremity: Pulses equal, no cyanosis. Neurovascular intact. Full, normal range of motion. Neuro: Awake and alert, GCS 15, oriented to person, place, time, and situation. Cranial nerves II-XII grossly intact. Motor strength 5/5 in all extremities. Sensory grossly intact. Cerebellar exam normal. Normal gait. Psych: Awake, alert, with orientation to person, place and time. Behavior, mood, and affect are within normal limits. 09:47 Cardiovascular: Rate: tachycardic, 09:47 Abdomen/GI: Mild diffuse abdominal pain more so epigastrically into the right upper quadrant. Very limited abdominal exam due to obesity. No rebound, guarding or peritonitis noted. No active emesis or diarrhea in the ED., 10:11 ECG was reviewed by the Attending Physician. EKG demonstrates normal sinus rhythm at 99 sp3 bpm with normal intervals, normal QRS, normal axis, normal ST/T-segment's without evidence of acute ischemia. Vital Signs: 09:42 BP 156 / 89; Pulse 118; Resp 20; Temp 99.7; Pulse Ox 96% on R/A; Weight 190.51 kg; nj1 Height 6 ft. 0 in. ; Pain 9/10; 10:18 BP 132 / 87; Pulse 101; Resp 18; Pulse Ox 99% ; Pain 9/10; nj1 11:23 BP 143 / 93; Pulse 100; Resp 18; Pulse Ox 99% on R/A; Pain 8/10; nj1 14:06 BP 141 / 88; Pulse 95; Resp 19; Temp 99; Pulse Ox 99% on R/A; ll1 09:42 Body Mass Index 56.96 (190.51 kg, 182.88 cm) nj1 09:42 Pain Scale: Adult nj1 10:18 Pain Scale: Adult nj1 11:23 Pain Scale: Adult nj1 MDM: 09:36 Patient medically screened. sp3 09:47 Data reviewed: vital signs, nurses notes, lab test result(s), radiologic studies. ED sp3 course: 37-year-old male with gastroenteritis symptoms including vomiting, diarrhea and mild abdominal pain. Differential diagnosis includes gastroenteritis, food poisoning, biliary pathology, GERD, pancreatitis, and to a much lower degree acute coronary syndrome or other pathology. Patient's weight is 420 pounds which is over the limit for the CT scanner available. Will obtain ultrasound of the right upper quadrant, laboratory values, urine analysis and administer normal saline and ondansetron for symptomatic control. Disposition pending workup and patient course.. 11:24 ED course: Ultrasound demonstrates no biliary abnormality. Laboratory values are within sp3 normal limits except for mild elevated LFTs likely from liver fatty infiltration. We will treat as gastroenteritis and administer antibiotics Cipro and Flagyl IV and discharged home on same meds with PCP follow-up.. 05/31 09:42 Order name: CBC with Diff; Complete Time: 11:24 sp3 05/31 09:42 Order name: CMP; Complete Time: 11:24 sp3 05/31 09:42 Order name: Lipase; Complete Time: 11:24 sp3 05/31 09:42 Order name: Urinalysis w/ reflexes; Complete Time: 13:40 sp3 05/31 09:43 Order name: Troponin High Sensitivity; Complete Time: 11:24 sp3 05/31 09:43 Order name: SARS RAPID; Complete Time: 11:24 sp3 05/31 09:43 Order name: Influenza Screen (a \T\ B); Complete Time: 11:24 sp3 05/31 10:17 Order name: CBC Smear Scan; Complete Time: 11:24 EDMS 05/31 09:42 Order name: Abdomen Limited US; Complete Time: 11:24 sp3 05/31 09:43 Order name: EKG; Complete Time: 09:43 sp3 05/31 09:42 Order name: IV Saline Lock; Complete Time: 10:08 sp3 05/31 09:42 Order name: Labs collected and sent; Complete Time: 10:08 sp3 05/31 09:43 Order name: EKG - Nurse/Tech; Complete Time: 10:08 sp3 Administered Medications: 09:55 Drug: NS 0.9% IV 1000 ml IV at 1 bolus Per protocol; 1000 mL bolus Route: IV; Rate: 1 nj1 bolus; Site: right antecubital; 14:08 Follow up: Response: No adverse reaction; IV Status: Completed infusion; IV Intake: ll1 1000ml 09:55 Drug: Ondansetron IVP 4 mg IVP once; over 2 minutes Route: IVP; Site: right antecubital;nj1 11:23 Follow up: Response: Nausea is decreased nj1 12:37 Drug: Ciprofloxacin IVPB 400 mg 200 ml IVPB once over 60 mins Volume: 200 ml; Route: nj1 IVPB; Infused Over: 60 mins; Site: right antecubital; 14:07 Follow up: IV Status: Completed infusion; IV Intake: 200ml ll1 12:37 Drug: metroNIDAZOLE IVPB 500 mg 100 ml IVPB at 200 ml/hr once over 30 mins Volume: 100 nj1 ml; Route: IVPB; Rate: 200 ml/hr; Infused Over: 30 mins; Site: right antecubital; 13:10 Follow up: Response: No adverse reaction; IV Status: Completed infusion; IV Intake: nj1 100ml 14:07 Follow up: Response: No adverse reaction; IV Status: Completed infusion; IV Intake: ll1 100ml Disposition Summary: 05/31/23 11:27 Discharge Ordered Notes: Location: Home sp3 Condition: Stable sp3 Diagnosis - Gastroenteritis sp3 Followup: sp3 - With: Private Physician - When: Upon discharge from the Emergency Department - Reason: Continuance of care Discharge Instructions: - Discharge Summary Sheet sp3 - Food Choices to Help Relieve Diarrhea, Adult sp3 - Diarrhea, Adult sp3 Forms: - Medication Reconciliation Form sp3 - Thank You Letter sp3 - Antibiotic Education sp3 - Prescription Opioid Use sp3 - Patient Portal Instructions sp3 - Leadership Thank You Letter sp3 Prescriptions: - Cipro 500 mg Oral tablet - take 1 tablet ORAL route every 12 hours for 7 days; 14 tablet; Refills: 0, sp3 Product Selection Permitted - Flagyl 500 mg Oral tablet - take 1 tablet ORAL route every 8 hours for 7 days; 21 tablet; Refills: 0, sp3 Product Selection Permitted Signatures: Dispatcher [employer] Elise Gaitan, MAGUI RN ll1 Ammy Molina MD MD sp3 Marii Mcallister RN RN nj1
[2023-05-31 13:38] LABS: Specific Gravity 1.026 (1.005-1.030); Urine Bacteria <20 /HPF (<20); Urine Bilirubin NEGATIVE (Negative); Urine Blood Negative (Negative); Urine Clarity Clear (Clear); Urine Color Yellow (Yellow); Urine Glucose NEGATIVE (Negative); Urine Mucus 1+ /HPF (None Seen); Urine Protein TRACE (Negative); Urine RBC <5 /HPF (None Seen); Urine Urobilinogen Normal (Normal); Urine pH 5.5 (5.0-7.0)
[2023-05-31 14:34] VITALS: BP 141/88; TEMP 99; O2SAT 99
--- NOTE | 2023-06-02 13:30 | EKG ---
Test Date: 2023-05-31 Test Time: 10:02:45 Nuclear Design Engineer: CADEN MEASUREMENT RESULTS: Intervals: Rate: 99 LA: 168 QRSD: 106 QT: 368 QTc: 472 [place]: P: 62 LA: 168 QRS: 78 T: 56 INTERPRETIVE STATEMENTS: Normal sinus rhythm Normal ECG Compared to ECG 03/07/2021 23:46:22 No significant changes Electronically Signed On 06-02-23 13:24:46 CORPORATE BUYER by Gurdeep Luna
== END ==
LOC: ER 09:32
DX: K52.9 Noninfective gastroenteritis and colitis, unspecified (principal); Z11.52 Encounter for screening for COVID-19
CPT/HCPCS: 36415; 76705; 80053; 81001; 83690; 84484; 85025; 87804; 87811; 93005; 96361; 96365; 96368; 96375; 99285; J0744; J2405; J7030